=== PATIENT | female | born 1985 | race Native Hawaiian/Other Pacific Islander ===

== ENCOUNTER 2018-08-23 06:28 | Day surgery (SDC) | payer OTHER ==
[2018-08-19 14:48] VITALS: BMI 33.6
[2018-08-23] MEDS ORDERED: Propofol 10 mg/ml Inj (20 ML) ONE (08:39)
[2018-08-23] MEDS ORDERED: Midazolam 2 MG/2 ML VIAL ONE (08:39)
[2018-08-23] MEDS ORDERED: cefOXitin IV 1 gm in Dextrose 1 GM/50 ML BAG IVPB ONE (08:40)
[2018-08-23] MEDS: Lidocaine Hydrochloride 10 ML INJ ONE ×2 (08:58→09:07)
[2018-08-23] MEDS ORDERED: Lidocaine Hydrochloride 10 ML INJ ONE (09:01)
[2018-08-23] MEDS ORDERED: Lactated Ringer's 1,000 ML IV ONE (09:55)
[2018-08-23] MEDS: HYDROmorphone 0.5 mg/0.5 ml ISec IVP PRN ×2 (10:23→10:56)
[2018-08-23 11:02] LABS: HEMOGLOBIN 13.2 g/dL (11.0-16.0); MEAN CELL VOLUME 84.2 fL (81.0-99.0); MEAN CORPUSCULAR HEMOGLOBIN 28.1 pg (27.0-31.0); MEAN CORPUSCULAR HGB CONC 33.3 g/dL (33.0-37.0); MEAN PLATELET VOLUME 10.3 fL (7.2-11.7); RBC 4.69 Mil/uL (3.80-5.20); RED CELL DISTRIBUTION WIDTH 14.3 % (11.5-14.5); WHITE BLOOD COUNT 6.9 K/uL (4.8-10.8)
[2018-08-23 12:01] VITALS: O2SAT 96
[2018-08-23 12:13] VITALS: RESP 18; TEMP 97.7
[2018-08-23 12:41] VITALS: BP 125/64; PULSE 89
--- NOTE | 2018-08-24 11:34 | OP ---
PROCEDURE DATE: 08/23/2018 PREOPERATIVE DIAGNOSIS: She is a 32-year-old 0, para 0 with cervical dysplasia. POSTOPERATIVE DIAGNOSIS: She is a 32-year-old 0, para 0 with cervical dysplasia. SURGEON: Preston Lam MD. ANESTHESIA: General. ANESTHESIOLOGIST: Woodrow Mota MD. COMPLICATIONS: None. ESTIMATED BLOOD LOSS: 200 mL. PROCEDURE PERFORMED: Cervical cord biopsy. DESCRIPTION OF PROCEDURE: After informed consent was obtained, the patient was brought to the operating room and placed on the table, where general anesthesia was given. The patient was prepped and draped in the usual sterile fashion. Lidocaine was injected, 20 mL was injected on both the 12 and 9 o'clock. After that, sutures were placed at 9 o'clock after that and the Bovie with the cautery. Using the cautery, the cervix was hold up with 2 Allis scissors and was cut using electrode and it was sent to the Pathology. Then, the ECC was done. The cervical wound was bleeding, so the stitches was placed. After that, coags were used to stop the bleeding. Lot of Monsels was there, it was not bleeding. After that, irrigation was then found to be hemostatic. No bleeding. Lot of Monsels was used. Pressure was applied. After visualizing and again not bleeding. After that, the speculum were taken out. The patient tolerated the procedure well. Lap, sponge, and instrument counts were correct x2. The patient was then monitored on antibiotics. The patient was followed with Dr Lam. Preston Lam MD
== END 2018-08-23 12:30 | disposition home or self-care (01) ==
LOC: C.SDS 06:28
PROVIDERS: ATTEND Obstetrics & Gynecology
DX: N87.1 Moderate cervical dysplasia (principal)
CPT/HCPCS: 36415; 58558; 85027; 88305; J0694; J1100; J1170; J2250; J2405; J2704; J3010; J7120